=== PATIENT | female | born 1990 | race Asian ===

== ENCOUNTER 2021-09-20 11:14 | Emergency (ER) | payer BC, OTHER ==
[~2021-09-20] VITALS: Ht 152.4 cm; Wt 44.0 kg
--- NOTE | 2021-09-20 11:20 | NUR ---
SEEN BY DR EASTON AT BEDSIDE
--- NOTE | 2021-09-20 11:25 | NUR ---
IV CANNULA G18 INSERTED ON LEFT AC. BLOOD DRAWN AND GIVEN TO APPLICATION CONSULTANT.
--- NOTE | 2021-09-20 11:36 | NUR ---
BIB SELF C/O GEN WEAKNESS. "I THINK I NEED A BLOOD TRANSFUSION BECAUSE PT SAID "I HAVE BETA THALASSEMIA". PLACED COMFORTABLY ON ER BED, VITALS CHECKED
[2021-09-20 11:49] LABS: BASOPHILS # (AUTO) 0.1 K/uL (0.0-0.2); BASOPHILS % (AUTO) 1.3 % (0.0-2.0); EOSINOPHILS % (AUTO) 0.3 % (0.0-6.0); HEMATOCRIT 27 % (33-45); HEMOGLOBIN 9.3 g/dL (11.5-14.8); LYMPHOCYTES # (AUTO) 2.9 K/uL (0.8-4.8); LYMPHOCYTES % (AUTO) 41.2 % (20.0-44.0); MEAN CORPUSCULAR HGB CONC 35 g/dl (31.0-36.0); MEAN CORPUSCULAR VOLUME 83 fL (82-100); MONOCYTES # (AUTO) 0.7 K/uL (0.1-1.30); MONOCYTES % (AUTO) 9.8 % (2.0-12.0); NEUTROPHILS # (AUTO) 3.4 K/uL (1.8-8.9); NEUTROPHILS % (AUTO) 47.4 % (43.0-81.0); PLATELET COUNT (AUTO) 316 K/uL (150-450); RED BLOOD CELL COUNT(AUTO) 3.22 MIL/uL (4.0-5.2); WHITE BLOOD COUNT (AUTO) 7.1 K/uL (4.3-11.0)
--- NOTE | 2021-09-20 11:58 | NUR ---
PT OUT OF THE BED TO THE BATHROOM , URINE SAMPLE COLLECTED .
[2021-09-20 12:21] LABS: CALCIUM, SERUM 9.3 mg/dL (8.5-10.1); CREATININE 0.6 mg/dL (0.6-1.3); POTASSIUM 3.8 mmol/L (3.5-5.1)
--- NOTE | 2021-09-20 12:57 | NUR ---
PT STABLE , DISCHARG INSTURCIONT GIVEN , PT VERBELIZES UNDERSTANDING ,
--- NOTE | 2021-09-20 12:58 | NUR ---
PT DISCHARGED HOME
[2021-09-20 12:59] VITALS: BP 111/67
== END 2021-09-20 13:00 | disposition home or self-care (01) ==
LOC: ER 11:14
DX: E87.1 Hypo-osmolality and hyponatremia (principal); R53.1 Weakness; D56.1 Beta thalassemia; Z60.2 Problems related to living alone
CPT/HCPCS: 36415; 80048-TC; 84703-TC; 85025-TC; 86850-TC